=== PATIENT | female | born 1995 | race Caucasian/White ===

== ENCOUNTER 2017-01-16 14:20 | Emergency (ER) | payer OTHER ==
[~2017-01-16] VITALS: Ht 167.6 cm; Wt 73.0 kg
[~2017-01-16 14:20] MED LIST: BACTDS PO; CEPH-443 PO; IBUP-1542 PO
[2017-01-16 14:23] VITALS: Ht 167.6 cm; Wt 73.0 kg
[2017-01-16] MEDS ORDERED: IBUPROFEN 800 MG TAB PO ONE (15:00)
--- NOTE | 2017-01-16 15:37 | RADRPT ---
PROCEDURE: Left breast ultrasound. CLINICAL INDICATION: Left wrist pain. TECHNIQUE: High-resolution sonography of the left breast was performed in the axial and sagittal p lanes. COMPARISON: No prior study is available for comparison. FINDINGS: There is no cystic or solid mass. Normal breast parenchyma is present. IMPRESSION: 1. Normal left breast ultrasound. 2. Any further management regarding any breast symptoms should be based upon clinical grounds. RPTAT: QQ .Perry Kovacs MD, MD Date Time Electronically viewed and signed by .Perry Kovacs MD, MD on 01/16/2017 15:37 .R/
[2017-01-16] MEDS ORDERED: ACET500C5 PO (16:13)
[2017-01-16] MEDS ORDERED: NAPR-260 PO (16:13)
--- NOTE | 2017-01-16 16:13 | ERD ---
ER Documentation Chief Complaint Date/Time DATE: 01/16/17 TIME: 16:10 Chief Complaint Complains of left breast pain x 2 weeks ROS All systems reviewed and are negative except as per history of present illness. Medications Home Meds Active Scripts Acetaminophen* (Tylophen*) 500 Mg Capsule, 1 CAP PO Q6H Y for PAIN AND OR ELEVATED TEMP, #30 CAP Prov:MAILE FLORIAN PA-C 01/16/17 Naproxen* (Naprosyn*) 500 Mg Tablet, 500 MG PO BID Y for PAIN AND/OR INFLAMMATION, #30 TAB Prov:MAILE FLORIAN PA-C 01/16/17 Ibuprofen* (Motrin*) 600 Mg Tab, 600 MG PO Q6H Y for PAIN AND OR ELEVATED TEMP, #30 TAB Prov:JERRI RAJPUT ASW[employer] 12/31/15 Cephalexin* (Keflex*) 500 Mg Capsule, 500 MG PO QID for 10 Days, CAP Prov:JERRI RAJPUT ASW[employer] 12/31/15 Sulfamethoxazole-Trimethoprim* (Bactrim* DS) 800-160 Mg Tab, 1 TAB PO BID for 10 Days, TAB Prov:JERRI RAJPUT ASW[employer] 12/31/15 Allergies Allergies: Coded Allergies: No Known Allergy (Unverified , 12/22/13) PMhx/Soc History of Surgery: No Anesthesia Reaction: No Hx Neurological Disorder: No Hx Respiratory Disorders: No Hx Cardiac Disorders: No Hx Psychiatric Problems: No Hx Miscellaneous Medical Probl: No Hx Alcohol Use: No Hx Substance Use: No Hx Tobacco Use: No Smoking Status: Never smoker Physical Exam Vitals Vital Signs Date Time Temp Pulse Resp B/P Pulse Ox O2 Delivery O2 Flow Rate FiO2 01/16/17 14:23 99.6 75 20 122/71 98 Physical Exam Const: NAD Head: Atraumatic Eyes: Normal Conjunctiva ENT: Normal External Ears, Nose and Mouth. Neck: Full range of motion..~ No meningismus. Resp: Clear to auscultation bilaterally. No absent breath sounds. No wheezing Breast: Left breast with no erythema or warmth. Tenderness palpation along the entire medial border. No drainage. No skin dimpling. Mild tenderness palpation chest wall Cardio: Regular rate and rhythm, no murmurs Abd: Soft, non tender, non distended. Normal bowel sounds Skin: No petechiae or rashes Back: No midline or flank tenderness Ext: No cyanosis, or edema Neur: Awake and alert Psych: Normal Mood and Affect Results 24 hrs Current Medications Medications (Trade) Dose Ordered Sig/Yarely Route PRN Reason Start Time Stop Time Status Last Admin Dose Admin Ibuprofen (Motrin) 800 mg ONCE ONCE PO 01/16/17 15:00 01/16/17 15:01 DC 01/16/17 14:58 DIAGNOSTIC IMAGING REPORT Patient: MARY JO OWENS : 1995 Age: 21 Sex: F MR #: [id number] DOS: 01/16/17 0000 Ordering MD: MAILE FLORIAN PA-C Location: [facility] Room/Bed: PROCEDURE: Left breast ultrasound. CLINICAL INDICATION: Left wrist pain. TECHNIQUE: High-resolution sonography of the left breast was performed in the axial and sagittal planes. COMPARISON: No prior study is available for comparison. FINDINGS: There is no cystic or solid mass. Normal breast parenchyma is present. IMPRESSION: 1. Normal left breast ultrasound. 2. Any further management regarding any breast symptoms should be based upon clinical grounds. RPTAT: QQ .Perry Kovacs MD, MD Date Time Electronically viewed and signed by .Perry Kovacs MD, MD on 01/16/2017 15:37 .R/ CC: MAILE FLORIAN PA-C Procedures/MDM This a 21-year-old female presents emergency department today complaining of left breast pain for the past 2 weeks. On physical exam patient was complaining of about pain on the inner upper border of the breast. Patient also had some chest wall pain however given patient's complaint of tenderness I did obtain an ultrasound Ultrasound shows a normal left breast ultrasound. She is afebrile and otherwise well-appearing. Low suspicion for mastitis, abscess. Patient also has some chest wall pain and this may be residual from that. Other differentials to consider fibrocystic changes and fibroadenoma. Patient denies any shortness of breath and therefore did not feel that she required a chest x-ray at this time. Symptoms at this time is consistent with chest wall pain and breast pain. She was given Motrin here in the emergency department. She will begin a prescription for Naprosyn and Tylenol for home Patient was concerned because she has breast cancer in her family. I explained to her that she may get a mammogram from her primary care doctor or [facility]. Patient was given a list of resources At this time the patient is stable for discharge and outpatient management. Patient should follow up with their PCP in the next 1-2 days. They may return to the emergency department sooner for any persistent or worsening of symptoms. Patient understood and agreed with the plan. Departure Diagnosis: Primary Impression: Breast pain Additional Impression: Chest wall pain Condition: Fair MAILE FLORIAN PA-C Jan 16, 2017 16:13
== END 2017-01-16 16:21 | disposition home or self-care (01) ==
LOC: FTE 14:20
DX: N64.4 Mastodynia (principal); R07.89 Other chest pain
CPT/HCPCS: 76642; Z7502; Z7610

== ENCOUNTER 2018-04-11 20:53 | Emergency (ER) | END 2018-04-11 21:35 | disposition home or self-care (01) ==